=== PATIENT | female | born 1970 | race Two or more races ===

== ENCOUNTER 2021-03-20 06:40 | Day surgery (SDC) | payer OTHER ==
[~2021-03-20 06:40] MED LIST: CIPRO500 MG PO; FLAGYL500MG PO; ZANTAC150 MG PO
[2021-03-20] MEDS ORDERED: COLACE100 MG PO (10:25)
[2021-03-20] MEDS ORDERED: PERCOCET 5-3251 EACH PO (10:25)
== END 2021-03-20 13:50 | disposition home or self-care (01) ==
LOC: CIR.AMB 06:40
PROVIDERS: ATTEND Surgery
DX: K62.82 Dysplasia of anus (principal); K64.8 Other hemorrhoids; Z20.822 Contact with and (suspected) exposure to COVID-19

== ENCOUNTER 2025-10-04 08:00 | Day surgery (SDC) | payer OTHER ==
[2025-09-20 07:28] VITALS: BP 133/89
[~2025-10-04] VITALS: Ht 180.3 cm; Wt 99.8 kg
[~2025-10-04 08:00] MED LIST changes: +COLACE100 MG PO; +LEVAQUIN; +PERCOCET 5-3251 EACH PO
[2025-10-04] MEDS ORDERED: CEFTRIAXONE SODIUM 2,000 MG VIAL ONE (09:25)
[2025-10-04] MEDS ORDERED: METRONIDAZOLE/SODIUM CHLORIDE 500 MG/100 ML PIGGYBACK IV ONE (09:26)
[2025-10-04] MEDS ORDERED: HEMOSTATIC MATRIX 1 KIT KIT TOP ONE (09:54)
[2025-10-04] MEDS ORDERED: BUPIVACAINE HCL/MPF 0.5% 30ML VIAL ONE (09:57)
[2025-10-04] MEDS ORDERED: POVIDONE-IODINE 118 ML BOTT TOP ONE (09:57)
[2025-10-04] MEDS ORDERED: DIBUCAINE 30 GM TUBE ONE (09:57)
[2025-10-04] MEDS ORDERED: LIDOCAINE HCL 1%/EPINEPHRINE 20ML VIAL IJ ONE (09:57)
== END 2025-10-04 14:55 | disposition home or self-care (01) ==
LOC: CIR.AMB 08:00
PROVIDERS: ATTEND Surgery
DX: D01.3 Carcinoma in situ of anus and anal canal (principal); A63.0 Anogenital (venereal) warts; K62.89 Other specified diseases of anus and rectum; D12.9 Benign neoplasm of anus and anal canal